=== PATIENT | male | born 1990 | race Caucasian/White ===

== ENCOUNTER 2017-01-16 17:41 | Emergency (ER) | payer OTHER, MEDICAID ==
[2017-01-16 18:03] VITALS: BP 138/76
[2017-01-16] MEDS ORDERED: Sodium Chloride 0.9% 10 ML Syringe FLUSH PRN (18:30)
[2017-01-16] MEDS ORDERED: Morphine 4 MG/ML Syringe IVPUSH ONE (18:32)
[2017-01-16] MEDS ORDERED: Ondansetron 4 MG/2 ML SDV IVPUSH ONE (18:32)
[2017-01-16] MEDS ORDERED: Sodium Chloride 0.9% 1,000 ML IV ONE (18:32)
[2017-01-16 19:24] LABS: CHLORIDE,CL 105 mmol/L (98-107); SODIUM,NA 140 mmol/L (136-145)
[2017-01-16] MEDS ORDERED: Take Home: Ondansetron 4 MG Tab.DIS, 2 Tab Pack PO ONE (19:44)
--- NOTE | 2017-01-17 04:17 | ER ---
Date of Service: 01/16/2017 SUBJECTIVE: Mohinder presents to the emergency room with complaints of abdominal cramping and diarrhea as well as nausea. He states he has been experiencing these symptoms for approximately 3-1/2 days. He states he has not been experiencing any fever or chills. He states the discomfort is intermittent in nature, and he denies any blood in his stools. He states that he is not experiencing any discomfort in his groin or testicles. He states that he does have diffuse abdominal cramping that does localize more into the right side of his abdomen. He states that he has not experienced discomfort like this in the past. PAST MEDICAL HISTORY: Asthma. MEDICATION: Advair Diskus. ALLERGIES: NKDA. REVIEW OF SYSTEMS: Constitution: No fever or chills. HEENT: No sore throat, rhinorrhea, or congestion. Respiratory: No shortness of breath. Cardiac: Denies any substernal chest pain. Gastrointestinal: Please see history of present illness. Genitourinary: Please see history of present illness. Neurologic: He is alert, oriented, answers all questions appropriately. PHYSICAL EXAMINATION: General: A 26-year-old male patient, who is in no acute distress. Vital Signs: Blood pressure is 138/76, pulse rate is 100, temperature is 35.8, respiratory rate 16, and O2 saturations 97%. Skin: Warm, pink, and dry. Mouth: Oral mucosa is moist. Lungs: Clear to auscultation. Heart: Regular rate and rhythm. Abdomen: Soft, diffusely tender throughout. There are no masses noted. There is no hepatosplenomegaly noted. No rebound tenderness. No guarding or rigidity noted. His obturator sign is negative. No increased discomfort with ambulation. Extremities: Without edema. Neurologic: He is alert, oriented, and answers all questions appropriately. His speech is fluent. His gait is within normal limits. LABORATORY DATA: WBCs 8.4, hemoglobin is 15.9, and platelets are 195. Coag: PT is 10.1, INR is 0.9. Chemistry: Sodium is 140, potassium is 3.7, chloride is 105, bicarb is 26, BUN is 13, and creatinine is 1.0. Creatinine clearance is 13.9. GFR is greater than 60. Glucose is 122, calcium is 9.3, corrected calcium is 9.38. Total bilirubin is 0.7, AST is 28, ALT is 75, alkaline phosphatase is 77. C-reactive protein is 1.5, total protein is 7.5, albumin is 3.9. Urinalysis was obtained. Specific gravity is 1.030. Negative for protein, glucose, ketones, occult blood, nitrites, and leukocyte esterase. EMERGENCY ROOM COURSE: IV access is established. He was given a liter of normal saline. He was given 4 mg of morphine IV and Zofran 4 mg IV for his nausea. He did report feeling better at time of discharge. ASSESSMENT: Gastroenteritis. PLAN: No imaging was done on this patient as he did not have blood in his urine, and he did not have obvious peritoneal signs. Also his other laboratory findings were within normal limits with the exception of mildly elevated ALT, which I advised him to follow up within the clinic. I stated that this could be secondary to his gastroenteritis. I did prescribe him Zofran 4 mg ODT tablets with instructions to take 1 every 8 hours as needed for nausea and vomiting. Return to the emergency room if the above discomfort worsens or if he develops any fever, chills, or other worrisome signs or symptoms. All questions were answered. YAYAK: 01/16/2017 21:15:12 MODL: 01/17/2017 01:42:54 /[id number]
== END 2017-01-16 20:00 | disposition home or self-care (01) ==
LOC: VM.ED 17:41
DX: K52.9 Noninfective gastroenteritis and colitis, unspecified (principal); J45.909 Unspecified asthma, uncomplicated
CPT/HCPCS: 36415; 80053; 81001; 85025; 85610; 86140; 96361; 96374; 96375; 99284; A9270; J2270; J2405; J7030

== ENCOUNTER 2018-07-03 10:37 | Day surgery (SDC) | payer BC, MEDICAID, OTHER ==
[~2018-07-03 10:37] MED LIST: Lactated Ringers 1,000 ML IV SCH; Sodium Chloride 0.9% 10 ML Syringe FLUSH PRN
[2018-07-03] MEDS ORDERED: fentaNYL 100 MCG/2 ML SDV ONE (12:08)
[2018-07-03] MEDS ORDERED: Propofol 200 MG/20 ML SDV ONE (12:08)
[2018-07-03 13:43] VITALS: BP 114/60
--- NOTE | 2018-07-03 13:51 | OR ---
PREOPERATIVE DIAGNOSIS: Gastroesophageal reflux disease. POSTOPERATIVE DIAGNOSIS: Mild antritis. PROCEDURE PROPOSED: Upper gastrointestinal panendoscopy with antral biopsies. PROCEDURE DONE: Upper gastrointestinal panendoscopy with antral biopsies. INDICATION: This is a 28-year-old gentleman with a several year history of active GERD, had been controlled with Zantac and Tums, recently got worse and now he has been taking some of his 's medication, pantoprazole, twice a day and he continues to have significant symptoms. TECHNIQUE: The patient was brought to the endoscopy suite, placed in left lateral decubitus position. He was sedated per [employer] with propofol. The flexible video colonoscope was then passed transorally and under visualization advanced well into the duodenum. The duodenum and duodenal bulb were unremarkable. The antrum and midportion of the stomach did reveal some mild gastritis and antritis, and a couple of antral biopsies were taken to rule out H. pylori. The GE junction itself did not reveal any hiatal hernia, and there was no evidence of any active GERD. The GE junction seemed to be well demarcated without Schatzki's ring or stenosis and the remainder of the esophagus was normal as the scope was then withdrawn. The patient tolerated the procedure well. FINAL IMPRESSION: Mild gastritis and antritis. PLAN: The patient is presently taking pantoprazole 40 mg twice a day from his 's supplied medication. I feel that he should continue taking that, but he also needs to avoid caffeine, alcohol, ibuprofen, and nicotine and follow up with Lalo Booth as needed for any further problems. SCM: 07/03/2018 13:05:47 MODL: 07/03/2018 13:35:12 /[id number]
== END 2018-07-03 14:10 | disposition home or self-care (01) ==
LOC: VM.SDS 10:37
PROVIDERS: ATTEND Surgery
DX: K21.0 Gastro-esophageal reflux disease with esophagitis (principal); K29.60 Other gastritis without bleeding; J45.20 Mild intermittent asthma, uncomplicated; E66.01 Morbid (severe) obesity due to excess calories; Z68.41 Body mass index [BMI] 40.0-44.9, adult; F41.9 Anxiety disorder, unspecified; F32.9 Major depressive disorder, single episode, unspecified; Z87.891 Personal history of nicotine dependence; Z79.899 Other long term (current) drug therapy
CPT/HCPCS: 43239; J2704; J3010; J7120